=== PATIENT | female | born 1965 | race Caucasian/White ===

== ENCOUNTER 2024-04-09 02:07 | Inpatient (IN) | payer BC, SELFPAY ==
[2024-04-08 23:18] VITALS: BP 158/106
--- NOTE | 2024-04-08 23:28 | ED.GENMED ---
History of Present Illness
General
Chief Complaint: Change in Mental Status
Time Seen by Provider: 04/08/24 23:28
History of Present Illness
History of Present Illness:
HPI: Jose Manuel reports one drink just before 6pm. Pt was at her 59th birthday libertarian at a restaurant from 6p-9p. She was talking about the libertarian normally until about 11p, then suddenly had no recollection of the libertarian. He states he did not see her
drink at all but she vomited once at the libertarian and once when she got home.
EXAM:
GENERAL: The patient is tearful and hyperventilating
HEENT: Moist oral mucosa
CARDIOVASCULAR: No murmurs, tachycardic heart rate, regular rhythm, No chest wall tenderness
PULMONARY: No respiratory distress, breath sounds are clear and equal
ABDOMEN: Soft with no peritoneal signs, no tenderness
NEUROLOGIC: Excellent strength all extremities, no coordination deficits, keeps asking same questions now. No dysarthria and no motor deficits, but she struggles to name the month and where she is.
PSYCHIATRIC: Has virtually no recollection of events over the past 6 hours, appears anxious
EXTREMITIES: Nontender, no edema, moves all extremities equally
SKIN: No rash, no lesions
TIME OF INITIAL ENCOUNTER: 11:35 PM
NUMBER AND COMPLEXITY OF PROBLEMS ADDRESSED AT THE ENCOUNTER
� Chronic conditions affecting care: Has had COVID in the past
� Acute Exacerbation and/or Progression of Chronic Illness: This is an acute problem
� Differential Diagnosis includes: Transient global amnesia, alcohol use, drug use, CVA less likely
AMOUNT AND/OR COMPLEXITY OF DATA TO BE REVIEWED AND ANALYZED
� I performed an independent evaluation of and my interpretation is:
EKG: Sinus 114, leftward axis deviation, nonspecific ST abnormality
CT: CT head shows no acute abnormality
X-rays:
Laboratory Studies: CBC unremarkable, low bicarb noted which may be related to hyperventilation, alcohol undetected
Other:
� Review of other/old records: No old records available for review in [facility]
� Clinical information was obtained by an independent historian: I spoke to the at bedside
� Prescriptions/Medications Considered but not given:
� Further testing considered but not performed:
RISK OF COMPLICATIONS AND/OR MORBIDITY OR MORTALITY OF PATIENT MANAGEMENT
� Social determinants of health affecting care:
� Discussion with other providers: I notified the neurologist on-call, Dr. Quezada of the patient's presentation after my initial evaluation at 11:35 PM�he recommends aspirin; hospitalist for admission
� Escalation of care including admission/observation vs risk of discharge considered: Strongly suspect transient global amnesia as her main neurologic deficit is memory. Labs are unremarkable with exception of bicarb which I
suspect is related to hyperventilation upon arrival. Urinalysis does not show any signs of infection. UDS is negative.
Phy Exam
Physical Exam
Physical Exam:
See HPI
Course
Orders/Labs/Results
Orders:
Orders
04/08/24 23:37
Electrocardiogram (*1) Urgent
Reason for Study: TIA/Stroke
EKG- Treatment ONCE
Drug Screen, Urine [Urine Drug Abuse Screen] Urgent
Date Specimen was Collected: 04/09/24
Time Specimen was Collected: 00:28
04/08/24 23:38
Alcohol Urgent
Basic Metabolic Panel Urgent
Complete Blood Count/With Diff Urgent
04/09/24 00:01
CT Head W/o Iv Contrast Urgent
Reason For Exam: severe amnesia, ?TGA
04/09/24 00:29
Urinalysis Reflex To Culture Urgent
Date Specimen was Collected: 04/09/24
Time Specimen was Collected: 00:28
Comment: ADD ON
04/09/24 00:47
Aspirin 325 mg PO NOW STA
04/09/24 00:53
CR Chest - 2 Views Urgent
Comment:
Reason For Exam: alt ms
04/09/24 00:54
Add On- LAB Urgent
Tests Added?: urinalysis with reflex culture
04/09/24 01:22
B-Hydroxybutyrate Urgent
Lactic Acid Urgent
Abnormal Lab Results
04/08/24 04/09/24
23:38 00:29
RBC 4.18 L 10^6/uL
(4.20-5.40)
Hct 36.4 L %
(37.0-47.0)
MCH 31.8 H pg
(27.0-31.0)
Abs Immat Gran (auto) 0.1 H 10^3/uL
(0-0.05)
Absolute Neuts (auto) 7.8 H 10^3/uL
(1.4-6.5)
Sodium 134 L mmol/L
(135-145)
Carbon Dioxide 17 L mmol/L
(22-30)
BUN 18 H mg/dl
(7-17)
Urine Ketones 1+ A
(Negative)
04/08/24 23:38
04/08/24 23:38
Vital Signs
Initial and Last Documented VS:
Initial Vital Signs
Temp Pulse Resp BP Pulse Ox
98.4 F 120 22 158/106 100
04/08/24 23:18 04/08/24 23:18 04/08/24 23:18 04/08/24 23:18 04/08/24 23:18
Last Documented Vital Signs
Temp Pulse Resp BP Pulse Ox
98.4 F 102 18 150/101 100
04/08/24 23:18 04/09/24 01:33 04/09/24 01:33 04/09/24 01:33 04/09/24 01:33
*Critical Care Note
Total Time (30-74mins, 75-104mins- exclusive of procedures): Not Applicable
ED Attending Note
-
Portions of this chart may have been created with voice recognition software.� Occasional wrong word or��sound alike� substitutions may have occurred due to the inherent limitations of voice recognition software.
Discharge Plan
Departure
Patient Disposition: Admit
Date of Disposition: 04/09/24
Time of Disposition: 00:54
Presentation/result/management discussed w/ accepting MD/DO: Hospitalist
Discharge Problem:
Transient global amnesia
Prescriptions:
No Action
No Current Medications
0
Referrals:
PRIVATE,PHYSICIAN [Family Provider] -
Interventions
Interventions:
*Risk Screen - Suicide Last Done: 04/08/24 23:34
*General Assessment Last Done: 04/08/24 23:34
*Neglect/Abuse Screening Last Done: 04/09/24 01:36
*ED COVID-19 Vaccine History Last Done: 04/08/24 23:34
ED- Neurological Assessment Last Done: 04/08/24 23:34
ED Swallowing Screen Last Done: 04/08/24 23:34
Discharge Date and Time
Print Language: SCOTTISH
[2024-04-08 23:34] VITALS: BMI 23.1
[2024-04-08 23:43] LABS: Glucose - Point of Care 95 mg/dl (70-99)
[2024-04-08 23:44] LABS: % Basophils 0.7 % (0-2); % Eosinophils 0.2 % (0-6); % Immature Granulocytes 0.5 % (0-0.5); % Lymphocytes 22.5 % (20.5-51.1); % Monocytes 3.6 % (1.7-9.3); % Neutrophils 72.5 % (42.2-75.2); Absolute Basophils 0.1 10^3/uL (0-0.2); Absolute Immature Granulocytes 0.1 10^3/uL (0-0.05); Absolute Lymphocytes 2.4 10^3/uL (1.2-3.4); Absolute Monocytes 0.4 10^3/uL (0.1-0.6); Absolute Neutrophils 7.8 10^3/uL (1.4-6.5); Hematocrit 36.4 % (37.0-47.0); Hemoglobin 13.3 g/dL (12.0-16.0); Mean Corp Hgb Conc. 36.5 g/dL (33.0-37.0); Mean Corpuscular Hgb 31.8 pg (27.0-31.0); Mean Corpuscular Volume 87.1 fL (81.0-99.0); Mean Platelet Volume 8.5 fL (7.4-10.4); Nucleated Red Blood Cells % 0 %; Platelet Count 371 10^3/uL (130-400); Red Blood Cell Count 4.18 10^6/uL (4.20-5.40); Red Cell Dist. Width 12.2 % (11.5-14.5); White Blood Cell Count 10.8 10^3/uL (4.8-10.8)
[2024-04-08 23:52] VITALS: BP 146/99
[2024-04-09] VITALS (12 sets, daily range): BP systolic 120–150; BP diastolic 72–101; PULSE 86–118; O2SAT 98; BMI 22.4
[2024-04-09] LABS: Alcohol None Detected; Blood Urea Nitrogen 18 mg/dl (7-17); Calcium 10.2 mg/dl (8.4-10.2); Carbon Dioxide 17 mmol/L (22-30); Chloride 99 mmol/L (98-107); Estimated Creatinine Clearance 61 ml/min; Glucose 99 mg/dl (70-99); Potassium 4.9 mmol/L (3.5-5.1); Sodium 134 mmol/L (135-145); eGFR > 60.00
[2024-04-09 00:49] LABS: Amphetamines Negative (Negative); Barbiturates Negative (Negative); Benzodiazepines Negative (Negative); Buprenorphine Negative (Negative); Cocaine Negative (Negative); Marijuana Negative (Negative); Methadone Negative (Negative); Methamphetamines Negative (Negative); Opiates Negative (Negative); Phencyclidine Negative (Negative); Tricyclic Antidepressants Negative (Negative)
[2024-04-09] MEDS: ASPIRIN 325 MG PO (00:58)
[2024-04-09 01:24] LABS: Urine Albumin Negative (Neg - Trace); Urine Bilirubin Negative (Negative); Urine Character Clear (Clear); Urine Color Straw; Urine Glucose Negative (Negative); Urine Ketone 1+ (Negative); Urine Leukocyte Negative (Negative); Urine Nitrite Negative (Negative); Urine Occult Blood Negative (Negative); Urine Urobilinogen Negative (Neg - 1+)
--- NOTE | 2024-04-09 01:50 | HPS.HSE ---
Family Physician
-
Family Physician: PHYSICIAN PRIVATE
Chief Complaint
-
Change in Mental Status
History of Present Illness
Patient is a 58y F with no significant PMH who presents to ED for evaluation of mental status change. Patient had a surprise birthday constitution party this evening for her upcoming 59th birthday. Prior to the constitution party, she complained of some headache and
nausea. At the constitution party she seemed her usual self; though, boyfriend states that she did go to the bathroom and had N/V twice during the constitution party. She had perhaps 1/2 beer throughout the entire evening. The constitution party ended around 9:30 and they arrived home
by 10:00. Around 10:30 she went to the bathroom and had another episode of N/V. Once she returned from the bathroom, she had no recollection of the evening. She did not recall any details about the constitution party or even that it had occurred. She was
aware of her surroundings and knew her name, her boyfriend's name, etc.
Given her sudden and significant confusion, patient was brought to the ED for further evaluation.
Here in the ED, patient is alert and able to answer questions. She exhibits short term memory loss and repeatedly asks same questions / is clearly not retaining any information at this time.
She denies any headache, chest pain, dyspnea, fevers / chills, etc.
She complains of feeling distressed / anxious about her current situation and does admit to some nausea.
No prior history of similar episodes.
Patient does not use drugs and is not a big drinker.
She takes no prescription medications.
She had a cosmetic blepharoplasty about 3 weeks ago (which she does not recall). No other recent surgeries, procedures, etc.
Medical History
Past Medical History
Past Medical History: Reports None
Past Surgical History: Reports Other
Additional Past Surgical History:
Blepharoplasty
Social History
Tobacco: Non-smoker
Alcohol: Occasional
Drug: None
Family History
Family History: Not pertinent
Allergies / Home Medications
Allergies reflects when Allergies were last updated in [employer].
Home Medications with original date entered in [employer]
Allergy/Medication List:
Allergies
Allergy/AdvReac Type Severity Reaction Status Date / Time
No Known Allergies Allergy Unverified 04/09/24 00:57
Home Medications
No Meds [No Current Medications] 04/09/24
Review of Systems
-
History Source: Patient
A 12 point ROS was completed and negative except as noted: Yes
Constitutional: Denies Fever or Chills
Respiratory: Denies Cough or Trouble Breathing
Cardiac: Denies Chest Pain or Palpitations
Abdomen/GI: Reports Nausea; Denies Abdominal Pain, Vomiting, Diarrhea or Constipated
: Denies Dysuria or Frequency
Musculoskeletal: Denies Joint Pain or Edema
Neurological: Denies Dizzy, Headache, Weakness or Numbness
Psych: Reports Anxiety
Physical Exam
Vital Signs
Vital Signs
Temp Pulse Resp BP Pulse Ox
98.4 F 102 18 150/101 100
04/08/24 23:18 04/09/24 01:33 04/09/24 01:33 04/09/24 01:33 04/09/24 01:33
Physical Exam
General: Other (Anxious appearing 58y F. Tearful at times.)
HEENT: Moist mucous membranes and PERRLA
Respiratory: Clear; No Wheezes, Rales or Rhonchi
Cardiac: S1/S2 and Regular Rhythm; No Murmur
GI: Soft, Non Tender, Non Distended and Normal Bowel Sounds
Musculoskeletal: No Clubbing, No Cyanosis and No Edema
Neuro: Awake, Alert, Nonfocal/grossly intact and Other (Oriented to person and month / year. Knows she is in a hospital but no which one / town. Does not know date / time.)
Laboratory Results
-
04/08/24 23:38
04/08/24 23:38
Impression/Plan
-
A/P: Patient is a 58y F with no significant PMH who presents to ED for evaluation of confusion.
Transient Global Amnesia
- Admit for further evaluation and treatment.
- Symptoms fairly typical with lack of retained new information, repeated questioning, etc.
- No recall of the day's events - or some recent events (surgery 3 weeks ago, etc).
- Otherwise neurologically intact at present and remote recall is intact.
- CT in the ED was unremarkable. Check MRI in the AM.
- Continue ASA daily for now.
- Neurology evaluation in the AM for further recommendations.
- Follow for improvement in memory / information processing and retention.
Anion Gap Metabolic Acidosis
N/V
- Patient with N/V and headache prior to confusion / TGA symptoms.
- ? viral illness / gastroenteritis that added to precipitation of current presentation.
- IVFs overnight and follow for improvement in labs / lytes.
- Follow for any new / recurrent nausea or other GI symptoms.
Elevated BP
- Blood pressure elevated at times in the ED; however, patient is clearly anxious / distraught.
- Follow for improvement / stabilization of BP.
- Consider addition of antihypertensive medications if needed.
DVT Prophylaxis: SCDs
Code Status: Full
[2024-04-09 02:12] LABS: Lactic Acid 1.2 mmol/L (0.7-2.0)
[2024-04-09 02:50] LABS: B-Hydroxybutyrate 1.12 mmol/L (0.02-0.27)
--- NOTE | 2024-04-09 04:07 | PTCARENOTE ---
Pt arrived to 333 from ED on stretcher. Pt ambulated from stretcher to bed with with standby assist. Family arrived with patient at bedside and able to answer some questions. Pt is still extremely forgetful and does not know what brought her to the "hospital at this time. NIH score of 2, previously 1 in ED. Telemetry initiated, bed alarm placed and medsitter obtained for safety. Pt resting comfortably and call richter at bedside although patient forgetful to use.
[2024-04-09] MEDS: NSS 1000 IV ×2 (04:50→14:22)
[2024-04-09 08:02] LABS: Hematocrit 38.3 % (37.0-47.0); Hemoglobin 13.4 g/dL (12.0-16.0); Mean Corpuscular Hgb 31.5 pg (27.0-31.0); Mean Corpuscular Volume 89.9 fL (81.0-99.0); Mean Platelet Volume 8.7 fL (7.4-10.4); Platelet Count 409 10^3/uL (130-400); Red Blood Cell Count 4.26 10^6/uL (4.20-5.40); Red Cell Dist. Width 12.5 % (11.5-14.5); White Blood Cell Count 10.9 10^3/uL (4.8-10.8)
[2024-04-09 08:23] LABS: Blood Urea Nitrogen 13 mg/dl (7-17); Carbon Dioxide 23 mmol/L (22-30); Chloride 102 mmol/L (98-107); Estimated Creatinine Clearance 61 ml/min; Glucose 95 mg/dl (70-99); HDL Cholesterol 75 mg/dl; LDL Cholesterol, Calculated 140 mg/dl; Potassium 4.6 mmol/L (3.5-5.1); Sodium 140 mmol/L (135-145); Total Cholesterol 221 mg/dl (50-199); Triglyceride 34 mg/dl (10-149); Very Low Density Lipoprotein 6 mg/dl (0-30); eGFR > 60.00
[2024-04-09] MEDS: LOW STRENGTH ASPIRIN 81 MG PO (08:29)
[2024-04-09] MEDS: PROTONIX IV 40 MG IV (08:29)
[2024-04-09] MEDS: NSS (PRESERVATIVE FREE) 10 ML IV (08:30)
--- NOTE | 2024-04-09 08:31 | W.PN.HOSP.TC ---
Today's Communication/Plan
-
IVF, monitor GI symptoms
MRI Brain
asa 81mg PO QD
Neurology eval
Stop Semaglutide on DC
Assessment / Plan
Assessment / Plan
A/P: Patient is a 58y F with no significant PMH who presents to ED for evaluation of confusion.
Transient Global Amnesia
- likely triggered by GI Upset (see below) and anxiety/stress - patient caring for 89 year old
- she continues with some short term memory loss this morning but memories of alliance party returning
- Otherwise neurologically intact at present and remote recall is intact.
- CT in the ED was unremarkable. Check MRI this morning or tomorrow
- Continue ASA daily for now.
- Neurology evaluation
Hyperlipidemia
- [place] risk score = 1.6%
Anion Gap Metabolic Acidosis
N/V
- Patient with N/V and headache prior to confusion / TGA symptoms.
- ? viral illness / gastroenteritis that added to precipitation of current presentation. *she also reports this morning that her Semaglutide was recently increased from 0.25mg to 0.5mg daily. She reports taking this for weight loss but she is not
overweight --> stop this medication on discharge
- electrolytes improved this morning
- test covid, C. Diff, norovirus and stool culture (if further diarrhea)
- continue IVF
Elevated BP
- Blood pressure elevated at times in the ED; however, patient is clearly anxious / distraught.
- monitor
DVT Prophylaxis: SCDs
Code Status: Full
Anticipated Discharge: 24 - 48 hours
Subjective/Interval History
-
Date of Service: April 09, 2024
seen with sister at bedside
continues to have some short term memory deficit
has been very stressed - caring for a 98 year old; surprise alliance party was overwhelming for her
Objective Data
-
Labs:
Laboratory Results
04/08/24 04/09/24
23:38 07:26
WBC 10.8 10.9 H
Hgb 13.3 13.4
Hct 36.4 L 38.3
Plt Count 371 409 H
Sodium 134 L 140
Potassium 4.9 4.6
Chloride 99 102
Carbon Dioxide 17 L 23
BUN 18 H 13
Creatinine 0.9 0.9
Glucose 99 95
Calcium 10.2 10.0
Vital Signs:
Vital Signs
Temp Pulse Resp BP Pulse Ox
98.3 F 109 17 139/92 98
04/09/24 04:03 04/09/24 04:03 04/09/24 04:03 04/09/24 04:03 04/09/24 04:03
Review of Systems
-
History Source: Patient
All other systems: Reviewed and negative
Physical Exam
-
General: No Apparent Distress
HEENT: PERRLA
Respiratory: Clear to Auscultation; Negative Wheezes
Cardiac: Regular Rhythm and S1/S2
GI: Soft and Nontender
Musculoskeletal: No Edema
Skin: Warm and Dry; Negative Rash
Neuro: AO x 3 and Nonfocal/Grossly Intact
Psych: Anxious
Data Reviewed
-
Diagnostic Radiology: Report Reviewed by me
Labs: Labs Reviewed by me
[2024-04-09 08:53] LABS: TSH Reflex To Free T4 0.73 uIU/ml (0.47-4.68)
[2024-04-09] MEDS: ZOFRAN 4 MG IV (09:22)
[2024-04-09 10:11] LABS: COVID-19 Antigen Negative (Negative)
--- NOTE | 2024-04-09 12:15 | PTOTSP ---
Speech Therapy
Presentation: Patient was oriented and followed commands. Patient reports difficulty recalling the events that brought her into the hospital.
Swallowing Function: INTERMEDIATE ACCOUNTANT observed patient with several bites of cracker and sips of thin liquids (straw) in which patient appeared to tolerate as she did not exhibit any overt clinical s/sx of aspiration or difficulty with mastication/manipulation.
Patient denied dysphagia complaints.
Recommendations:
1) Regular consistency solids and thin liquids
2) Standard aspiration precautions
3) Medications as tolerated
4) Consideration of cognition assessment given her forgetfullness
Plan: INTERMEDIATE ACCOUNTANT will continue to follow; pending hospitalization.
[2024-04-09 13:59] LABS: Phosphorus 4.2 mg/dl (2.5-4.5)
--- NOTE | 2024-04-09 14:00 | CON.NEURO4 ---
Consultation - Neurology 4
-
CONSULTING PHYSICIAN: Robin Quezada MD(Neurology)
REFERRING PHYSICIAN: Hospitalist
DICTATED BY: Robin Quezada MD
DATE/TIME OF REQUEST: 04/09/2024
DATE/TIME OF CONSULTATION: 04/09/2024 1215
Reason for Consultation: AMS
History of Present Illness:
This is a 58 year old right handed female who has presented to the hospital with (chief complaint) of altered mental status. She has no previous history who had been in her USOH till yesterday evening.
Patient had a surprise birthday alliance party last evening for her 59th birthday. Prior to the alliance party, she complained of headache and nausea. At the alliance party she seemed confused repeatedly greeting her sister and cousins. Boyfriend states that she did go to
the bathroom and had vomited twice. She had perhaps 1-2 beers throughout the entire evening. The alliance party ended around 9:30 and they arrived home by 10:00. On reaching home she repeatedly asked her boyfriend about the celebration
Around 10:30 she went to the bathroom and threw up again. Once she returned from the bathroom, she had no recollection of the evening. She did not recall any details about the alliance party or even that it had occurred. She was aware of her surroundings
and knew her name, her boyfriend's name, etc.
Given the sudden and significant confusion, patient was brought to the ED for further evaluation. Omn arrival she was unable to recall events
In the ED, patient is alert and able to answer questions. She exhibits short term memory loss and repeatedly asks same questions / was clearly not retaining any information at this time.
Her memory improved and texted her sister early this morning as to why she was hospitalized
Past Medical History: None
Surgical History: NC
Family History: NC
Social History: Single lives at home
Allergies: NKA
Home Medications:
Review of Symptoms:
Patient denies any fever, headache, chest pain, shortness of breath, GI or symptoms.
�Per the HPI.�All systems are reviewed negative except above.
�-
Vital Signs:
The patient has a Temp 36.7 C Pulse 78 Resp 14 BP 130/81 Pulse Ox 99
Physical Exam:
The patient is afebrile, heart sounds S1 and S2 are (regular , and chest is clear to auscultation bilaterally.
- If not clear, describe.
Neurologic Examination:
The patient is awake, alert and oriented x 3. (He/She) is able to follow commands and answer questions appropriately. There is no aphasia or dysarthria. On cranial nerve assessment, pupils are 3 mm bilateral, round and reactive to light and
accommodation. Visual haque are full. Extraocular movements are intact. Facial sensations are intact and bilaterally symmetrical, there is no facial asymmetry. Hearing is intact bilaterally to normal conversation volume. Tongue palate and uvula
are midline. Sternocleidomastoid strengths are full bilaterally.
Motor strengths are 5/5 bilateral upper and lower extremities on medical research [place] scale. There is no drift or involuntary movement noted.
Deep tendon reflexes are 2+ bilateral upper and lower extremities and Babinski is absent bilaterally.
Sensations of pain, touch, temperature and vibration are intact and bilaterally symmetrical. There was no extinction noted on double simultaneous stimulation. Coordination is intact by finger to nose bilaterally. Rombergs Negative. Gait WNL
Lab Results: See addendum
Neuro Imaging: CT head: Minimal atrophy. Minimal small vessel changes. Normal ventricles
Impression:
Ms. TRINH VALDEZ is a 58 year old F who has presented to the hospital with (symptoms/chief complaint).
Differentials for the patient's presentation include:
1. Transient Global amnesia
2. Complex partial seizure
Recommendations:
1. Ecasa 81 mg daily
2. MRI/MRA brain
3. EEG OP
Discussed patient care with: Hospitalist
Allergies
-
Allergies
Allergy/AdvReac Type Severity Reaction Status Date / Time
No Known Allergies Allergy Unverified 04/09/24 00:57
Vital Signs and Labs
-
Vital Signs and Labs:
Vital Signs
Temp Pulse Resp BP Pulse Ox
36.7 C 78 14 130/81 99
04/09/24 12:00 04/09/24 12:00 04/09/24 12:00 04/09/24 12:00 04/09/24 12:00
Lab Results
04/09/24 07:26
04/09/24 07:26
Sodium 140 mmol/L (135-145) 04/09/24 07:26
Potassium 4.6 mmol/L (3.5-5.1) 04/09/24 07:26
BUN 13 mg/dl (7-17) 04/09/24 07:26
Glucose 95 mg/dl (70-99) 04/09/24 07:26
Calcium 10.0 mg/dl (8.4-10.2) 04/09/24 07:26
Phosphorus 4.2 mg/dl (2.5-4.5) 04/09/24 07:26
LDL Cholesterol, Calc 140 mg/dl 04/09/24 07:26
Ur Buprenorphine Negative (Negative) 04/09/24 00:29
Medications
-
Active Medications
Generic Name Dose Route Start Last Admin
Trade Name Freq PRN Reason Stop Dose Admin
Acetaminophen 650 mg 04/09/24 03:44
Acetaminophen 325 Mg Tablet PO 05/07/24 03:43
Q4HPRN PRN
Mild Pain / Temp > 101
Aspirin 81 mg 04/09/24 08:00 04/09/24 08:29
Aspirin 81 Mg Chewable Tablet PO 05/07/24 07:59 81 mg
DAILY AUGUSTINE Administration
Sodium Chloride 1,000 mls @ 100 mls/hr 04/09/24 03:44 04/09/24 04:50
Nss IV 1,000 mls
.Q10H AUGUSTINE Administration
Ondansetron HCl 4 mg 04/09/24 03:44 04/09/24 09:22
Ondansetron 4 Mg/2 Ml Vial IV 05/07/24 03:43 4 mg
Q6HPRN PRN Administration
nausea and vomiting
Pantoprazole Sodium 40 mg 04/09/24 08:00 04/09/24 08:29
Pantoprazole Sodium 40 Mg/10 Ml Vial IV 05/07/24 07:59 40 mg
DAILY AUGUSTINE Administration
Prochlorperazine Edisylate 5 mg 04/09/24 10:20
Prochlorperazine 10 Mg/2 Ml Vial IV 05/07/24 10:19
Q6HPRN PRN
second line nausea
Sodium Chloride 0 flush 04/09/24 05:00
Sodium Chloride 0.9% (Flush) Syringe IV 05/07/24 04:59
PER PROTOCOL AUGUSTINE
Sodium Chloride 10 ml 04/09/24 08:00 04/09/24 08:30
Sodium Chloride 0.9% (Preservative Free) 10 Ml Vial IV 05/07/24 07:59 10 ml
DAILY AUGUSTINE Administration
Home Medications
�Medication �Instructions �Recorded
semaglutide (weight loss) 0.5 0.5 mg SC QWEEK 04/09/24
mg/0.5 mL subcutaneous pen
injector (Indra)
[2024-04-09] MEDS: TYLENOL 650 MG PO (14:26)
--- NOTE | 2024-04-09 15:23 | CM ---
Initial assessment completed with pt at bedside.
Pt is a 58yr old female admitted with change in mental status.
Pt works and is independent at baseline.
PCP; Veronica Richardson
Pharm; [facility]
PLAN; dc home no needs.
--- NOTE | 2024-04-09 18:13 | W.DS.TRANS ---
DC Summary - [employer] Supervisor
-
Discharge Instructions:
Discharge Diagnosis/Procedures transient global amnesia, adverse effect of
Wegovy
Diet Low Cholesterol
Activity As tolerated
Driving Restrictions As prior to admission
Bathing Restrictions None
Instructions:
Stand-Alone Forms:
Changes to Home Medications: Yes
Discharge Medications:
DC Medications w/original date entered in [email or web address]
aspirin 81 mg chewable tablet 81 mg PO DAILY #30 tabs 04/09/24
Home Medication Changes
Stop Wegovy, new start aspirin
Pending Results: No
--- NOTE | 2024-04-09 18:15 | W.DCSUMMARY ---
Discharge Summary
Discharge Data
Date of Admission: 04/09/24
Date of Discharge: 04/09/24
-
Pending Results: No
Hospital Course
Discharging Physician : Dr. Aiede Ortez
Disposition : Home
Principal Discharge diagnosis : Transient Global Amnesia
Hospital Course :
Ms. Bridgett Hester is a 58 yo woman without significant past medical history who presents to the ER with complaint of nausea/vomiting followed by confusion. She had been thrown a surprise alliance party earlier in the evening and following the event, she had
no recollection of the evening.
Triage vitals significant for hypertension. Labs with metabolic acidosis (CO2 17). CT Head without acute event. She was admitted to medicine with Neurology consulting. Brain MRI showed no acute stroke, MRA without hemodynamically significant
stenosis. Her memory issues resolved. Story suggestive of transient global amnesia. She will follow up with Neurology as outpatient. EEG to be considered outpatient. She is started on aspirin 81mg PO QD.
GI symptoms in setting of recently increased Wegovy dosing, likely culprit. With IVF, metabolic acidosis resolved. She is told to stop this on DC (was for weight loss).
Time spent on discharge was 31 minutes.
Important imaging findings :
HEAD CT
IMPRESSION:
No acute intracranial abnormality.
CXR: no acute disease
BRAIN MRI/Head MRA
IMPRESSION:
No acute intracranial abnormality noted.
No focal hemodynamically significant stenosis, aneurysm or occlusion.
Procedure findings :
Discharge Plan
-
Patient Disposition: Home (Routine Discharge)
Discharge Diagnosis/Procedures: transient global amnesia, adverse effect of Wegovy
Diet: Low Cholesterol
Activity: As tolerated
Driving Restrictions: As prior to admission
Bathing Restrictions: None
Activity Restrictions/Additional Instructions:
Follow up with your PCP.
Your cholesterol is elevated. Eat a low fat diet and exercise. This will be monitored by your PCP.
Referrals:
Beans,Shira, TERRAZZO SUPERVISOR [Specified Professional Personl] - in two to four weeks
PRIVATE,PHYSICIAN [Family Provider] - in less than 1 week
Additional Discharge Medication Instructions: New start aspirin 81mg daily
Stop Wegovy
Prescriptions:
New
aspirin 81 mg Tablet,Chewable
81 mg PO DAILY Qty: 30 0RF
Discontinued
Wegovy 0.5 mg/0.5 mL Pen Injector
0.5 mg SC QWEEK
Discharge Orders:
Discharge Patient (As Directed); Ordered 04/09/24
Ordered By: Aidee Ortez
Discharge Date and Time
Print Language: BELIZEAN
== END 2024-04-09 18:38 | disposition home or self-care (01) | DRG 71 ==
LOC: 3 WEST ACU 02:07
PROVIDERS: ADMITTING PHYSICIAN Hospitalist; ATTENDING PHYSICIAN Student in an Organized Health Care Education/Training Program; CONSULT PHYSICIAN Psychiatry & Neurology Neurology; EMERGENCY PHYSICIAN Emergency Medicine
DX: G45.4 Transient global amnesia (principal); E87.20 Acidosis, unspecified; K52.1 Toxic gastroenteritis and colitis; E78.5 Hyperlipidemia, unspecified; I10 Essential (primary) hypertension; T50.995A Adverse effect of other drugs, medicaments and biological substances, initial encounter; Y92.009 Unspecified place in unspecified non-institutional (private) residence as the place of occurrence of the external cause; Z11.52 Encounter for screening for COVID-19
CPT/HCPCS: 70450; 70544; 70553; 71046; 80048; 80061; 80306; 81003; 82010; 82077; 82962; 83605; 83735; 84100; 84443; 85025; 85027; 87811; 92610; 93005; 97162; 97165; 99285; A9575